=== PATIENT | female | born 1970 | race African-American/Black ===

== ENCOUNTER 2016-10-31 09:01 | Emergency (ER) | payer MEDICAID ==
[~2016-10-31] VITALS: Ht 165.1 cm; Wt 98.0 kg
[2016-10-31] MEDS ORDERED: ANTI-ITCH28 G1 TP (09:23)
[2016-10-31] MEDS ORDERED: BENADRYL25 MG ORAL (09:23)
[2016-10-31] MEDS ORDERED: PREDNISONE20 MG ORAL (09:23)
[2016-10-31 09:27] VITALS: BP 134/86
[2016-10-31 09:34] VITALS: BP 134/86
--- NOTE | 2016-11-01 07:08 | Emergency Room Report ---
History of Present Illness General Chief Complaint: Skin Rash/Abscess Source: Patient Present Illness HPI Patient is a 46-year-old female who presented after having increased itching to both upper extremities. The patient reported having insect bite which she had noticed a become more bothersome. She denied any difficulty breathing or sore throat. She had not been having any fevers. She denied severe pain to her extremities. She taking Benadryl yesterday with minimal improvement. Allergies: Coded Allergies: AMPICILLIN (Verified Allergy, Unknown, 10/31/16) Patient History Last Menstrual Period: 10/06/16 Now: No : 10 Para: 6 Reviewed Nursing Documentation: PMH: Agreed, PSxH: Agreed Nursing Documentation-PMH Past Medical History: No History, Except For Hx Cardiac Problems: No - Bronchitits Review of Systems All Other Systems: negative except mentioned in HPI Physical Exam Vital Signs Date Time Temp Pulse Resp B/P (MAP) Pulse Ox O2 Delivery O2 Flow Rate FiO2 10/31/16 09:04 97.5 76 20 134/86 98 Room Air General Appearance: well appearing, no apparent distress, alert, GCS 15 Head: normocephalic, atraumatic ENT: hearing grossly normal, normal voice Neck: full range of motion, supple Respiratory: no respiratory distress, speaking full sentences Gastrointestinal: normal inspection Musculoskeletal: normal range of motion, no calf tenderness Neurologic: normal inspection, alert, oriented x3, responsive, associate director of nursing III-XII nml as tested, normal gait Psychiatric: mood/affect normal Skin: other - multiple papules with surrounding erythema without fluctuance or tenderness to bilateral upper extremities Medical Decision Making Diagnostic Impression: Primary Impression: Insect bite Additional Impression: Rash and other nonspecific skin eruption ER Course Patient presented for skin rash. Differential diagnosis included was not limited to allergic reaction, Vallecillo-Michael syndrome, urticaria, erythema multiforme, contact dermatitis. Patient's benign exam and does not appear to require any further imaging or laboratory testing at this time. The patient was given oral prednisone. She is given prescription for a cortisone cream as well as Benadryl and prednisone. The patient is advised to follow up with primary care doctor in 1-2 days. Patient is advised to return if any worsening condition or if any changes in status that are concerning. Last Vital Signs Date Time Temp Pulse Resp B/P (MAP) Pulse Ox O2 Delivery O2 Flow Rate FiO2 10/31/16 09:34 97.5 76 20 134/86 98 Room Air Status: improved Disposition: HOME, SELF-CARE Condition: Stable Scripts Hydrocortisone 2% Cream (ANTI-ITCH 2% CREAM) Y Cr 28 GM TP DAILY for Itching, #28 GM Prov: Epifanio Moses 10/31/16 Diphenhydramine Hcl* (BENADRYL*) 25 Mg Capsule 25 MG ORAL Q6H Y for Itching, #30 CAP Prov: Epifanio Moses 10/31/16 Prednisone* (PREDNISONE*) 20 Mg Tablet 40 MG ORAL DAILY, #10 TAB Prov: Epifanio Moses 10/31/16 Patient Instructions: Insect Bite, [id number] Epifanio Moses Nov 01, 2016 07:08
== END 2016-10-31 09:50 | disposition home or self-care (01) ==
LOC: EMR 09:21
DX: S40.862A Insect bite (nonvenomous) of left upper arm, initial encounter (principal); S40.861A Insect bite (nonvenomous) of right upper arm, initial encounter; W57.XXXA Bitten or stung by nonvenomous insect and other nonvenomous arthropods, initial encounter; Y92.89 Other specified places as the place of occurrence of the external cause; R21 Rash and other nonspecific skin eruption; Z88.0 Allergy status to penicillin
CPT/HCPCS: 81025; 99284